=== PATIENT | female | born 1940 | race Caucasian/White ===

== ENCOUNTER 2022-05-25 09:48 | Emergency (ER) | payer MEDICARE, BC ==
[~2022-05-25] VITALS: Ht 154.9 cm; Wt 103.7 kg
[2022-05-25 13:17] VITALS: BP 130/54
== END 2022-05-25 13:18 | disposition home or self-care (01) ==
LOC: ER 09:48
DX: M79.605 Pain in left leg (principal); I10 Essential (primary) hypertension; Z90.49 Acquired absence of other specified parts of digestive tract; Z90.89 Acquired absence of other organs
CPT/HCPCS: 93971